=== PATIENT | male | born 1930 | race Caucasian/White ===

== ENCOUNTER → 2017-11-08 | Day surgery (SDC) | payer MEDICARE ==
[~2017-11-08] VITALS: Ht 182.9 cm; Wt 74.0 kg
[~2017-11-08] MED LIST: ACETAMINOPHEN 1000 MG/100 ML 100 ML IV ONE; ARTIFICIAL TEARS OPTH OINT 3.5 APPLIC/3.5 GM TUBO ONE; ASPI-516 CHEW; BACT800T5 PO; CHLORHEXIDINE GLUCONATE 2 % 1 PACK (2 CLOTHS) TOPICAL PRN; EPINEPHrine HCL PF/SF (1:1000) 1 MG/ML AMP I-OCULAR ONE; HYDR-3516 PO; LACTATED RINGER'S 1000 ML IV PRN; LIDOCAINE 1%/EPINEPHrine 1:100,000 SOLN 30 ML VIAL ONE; LISI10TA3 PO; METOPROLOL TARTRATE 25 MG TAB PO PRN; OCUVTAB4 PO; POVIDONE IODINE 5% (ANTISEPSIS KIT) 4 APPLICATIONS EACH NARE PRN; SIMV20TA PO; SODIUM BICARBONATE 8.4% INJ 50 ML ONE; SODIUM CHLORID 0.9% 500 ML IV PRN; ceFAZolin 2 GM PREMIX 50 ML IV SCH
--- NOTE | 2017-11-08 10:15 | PD.OP ---
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 cm diameter excision, Frozen section, Full thickness skin graft 3 SCC Left parieto occipital scalp 3 cm diameter excision, Frozen section, Full thickness skin graft 4 SCC Left upper neck 2.5 x 1.5 cm diameter excision, Direct closure 5 Full thickness skin graft harvest from Left mid and lower neck 12 x 3 cm Anesthesia: gen Surgeon: Raphael iH[facility] Vessel Slag Worker(s): rn Resident Surgeon: no Operation and Findings: Indications: Biopsy proven lesions involving the above areas - except left parieto-occipital lesion which is ulcerated and proliferative, SCC by clinical appearance. Patient has had many previous skin cancers and has had skin grafts too. he is comfortable going ahead with surgery in operating room - general anesthesia preferred by him, understands frozen section and either a direct closure, local advancement flaps and / or skin grafts. He understands and accepts possible risks and complications, including bleeding, infection, healing problems, open wounds, future surgeries and other risks with surgery in general. Preoperative markings were made in holding area. Patient was taken to the OR General anesthesia started, IV antibiotics given, prep and drape done, time out completed Tumescent mix of lidocaine 1% with epi 25 cc, Sodium bicarb 25 cc, Epinephrine 0.5 cc and approx 150cc of saline mix used. All lesion sites injected and tumesced. Lesions excised down to the fat / areolar tissue planes,. Suture marked and sent for frozen section except the one on the neck - it was permanent section only. Excision sizes and closing methods are as listed below. 1 BCC Nose tip 1.5 cm diameter excision, Frozen section, Full thickness skin graft 2 SCC Left posterior ear 3.5 x 4. cm diameter excision, Frozen section, Full thickness skin graft 3 SCC Left parieto occipital scalp 3 cm diameter excision, Frozen section, Full thickness skin graft 4 SCC Left upper neck 2.5 x 1.5 cm diameter excision, Direct closure Left ear posterior skin lesion - original biopsy site and additional two ulcerated / small nodular areas were noted and included in the single specimen. Hemostasis completed in all areas. Left mid and lower neck 12 x 3 cm oval ended graft taken at full thickness dermis. Graft kept in saline moist gauze during surgery as needed. Left neck - lesion area and the graft site closed with 3/0 Vicryl internal sutures. Graft applied to all remaining areas with 4/0 Chromic sutures. the graft behind the ear was placed in 2 parts to create better postauricular sulcus fit. Frozen section report received indicated residual skin cancers and all margins on all specimens were reported free. Xerform wet telfa, and eyepad dressings were sutured in place with 3/0 Prolene on all the ear and scalp grafts, steristrips for the nose. Donor site also steristripped. Intraoperative blood loss minimal, less than 10 cc. No complications, patient remained stable through the anesthesia and surgery. Raphael High MD Nov 08, 2017 10:15
[2017-11-08 12:00] VITALS: BP 122/55; PULSE 86; RESP 14; TEMP 97.7; O2SAT 99
== END | disposition home or self-care (01) ==
LOC: PHSDC 06:07
PROVIDERS: ATTEND Plastic Surgery
DX: C44.311 Basal cell carcinoma of skin of nose (principal); C44.42 Squamous cell carcinoma of skin of scalp and neck; C44.229 Squamous cell carcinoma of skin of left ear and external auricular canal; D64.9 Anemia, unspecified; I70.0 Atherosclerosis of aorta; I65.29 Occlusion and stenosis of unspecified carotid artery; L03.119 Cellulitis of unspecified part of limb; H61.20 Impacted cerumen, unspecified ear; I12.9 Hypertensive chronic kidney disease with stage 1 through stage 4 chronic kidney disease, or unspecified chronic kidney disease; N18.3 Chronic kidney disease, stage 3 (moderate); E11.9 Type 2 diabetes mellitus without complications; K59.00 Constipation, unspecified; K63.5 Polyp of colon; E78.5 Hyperlipidemia, unspecified; I51.7 Cardiomegaly; B37.0 Candidal stomatitis; M85.80 Other specified disorders of bone density and structure, unspecified site; C61 Malignant neoplasm of prostate; M79.659 Pain in unspecified thigh; L72.3 Sebaceous cyst; I70.209 Unspecified atherosclerosis of native arteries of extremities, unspecified extremity; R55 Syncope and collapse; R23.8 Other skin changes; S91.109D Unspecified open wound of unspecified toe(s) without damage to nail, subsequent encounter; S91.309D Unspecified open wound, unspecified foot, subsequent encounter; S81.809D Unspecified open wound, unspecified lower leg, subsequent encounter
CPT/HCPCS: 00300; 11622; 11623; 11642; 11644; 15220; 15240; 15260; 88305; 88331; J0131; J0171; J0690; J3010; J7120